=== PATIENT | female | born 1990 | race Caucasian/White ===

== ENCOUNTER 2024-02-04 10:33 | Emergency (ER) | payer BC, SELFPAY ==
--- NOTE | ~2024-02-04 | XR_ITS ---
EXAMINATION: XR forearm RT 2V DATE: 02/04/2024 11:47 INDICATION: Right forearm laceration. TECHNIQUE: 2 views of right forearm were obtained. COMPARISON: None. FINDINGS: Bone alignment is normal. No fracture. Joint spaces are normal. No elbow joint effusion. Th ere is a laceration of the forearm. IMPRESSION: 1. No fracture or radiopaque foreign body. Reviewed, dictated and finalized at location A.
[2024-02-04 10:57] VITALS: BP 118/80; PULSE 76; RESP 18; TEMP 36.8; O2SAT 100
--- NOTE | 2024-02-04 11:13 | ED.ANIMALBIT ---
HPI - Animal Bite General Chief Complaint: Animal Bite Stated Complaint: dog bite Time Seen by Provider: 02/04/24 10:52 Source: patient Mode of arrival: ambulatory Limitations: no limitations History of Present Illness HPI narrative: Patient is a 34-year-old female who presents the ED with report of a dog bite to right forearm. Patient reports she was breaking up a fight between her dog and her foster dog when she was bit in the right forearm. She sustained several puncture wounds and lacerations. The dogs are up-to-date on their vaccines. Patient's tetanus status is unknown. She denies any numbness or tingling. Denies any other injuries or concerns. Related Data Allergies Allergy/AdvReac Type Severity Reaction Status Date / Time amoxicillin Allergy Rash Verified 02/04/24 11:06 Review of Systems Review of Systems: CONSTITUTIONAL: Denies fever, chills, or sweats. MUSCULOSKELETAL: See HPI. NEUROLOGIC: Denies headache, dizziness, numbness, or weakness. All systems reviewed & are unremarkable except as noted in HPI and below Exam Narrative: GENERAL: Well appearing, well-nourished, non-toxic, in no acute distress. HEAD: Normocephalic, atraumatic. RESPIRATORY: Airway patent, respirations nonlabored. CARDIOVASCULAR: Regular rate and rhythm without murmurs, rubs, or gallops. Radial pulses equal and easily palpable. MUSCULOSKELETAL: Moves all extremities. No gross deformities. SKIN: Warm, dry, normal color. Several small puncture wounds to R dorsal forearm with larger 2.5cm laceration horizontal across forearm. Subcutaneous fatty tissue exposed, no significant active bleeding focal tenderness surrounding wounds. Smaller 1 cm laceration / puncture to ventral forearm with minimal active bleeding. Sensation intact throughout right upper extremity. Capillary refill intact. Able to move wrist and fingers appropriately. NEURO: A&O X3. Speech clear. PSYCHIATRIC: Appropriate mood and affect. Normal interaction. Course Vital Signs Vital signs: Vital Signs Temperature 98.3 F 02/04/24 10:57 Pulse Rate 76 02/04/24 10:57 Respiratory Rate 18 02/04/24 10:57 Blood Pressure 118/80 02/04/24 10:57 Pulse Oximetry 100 02/04/24 10:57 Oxygen Delivery Room Air 02/04/24 10:57 Temperature 98.4 F 02/04/24 12:48 Pulse Rate 81 02/04/24 12:48 Respiratory Rate 17 02/04/24 12:48 Blood Pressure 118/76 02/04/24 12:48 Pulse Oximetry 100 02/04/24 12:48 Oxygen Delivery Room Air 02/04/24 10:57 Procedures Laceration Laceration 1: Date: 02/04/24 Time: 12:06 Site: upper extremity Side (If applicable): right (dorsal forearm) Size (cm): 2.5 Description: linear Depth: simple, single layer Local Anesthetic: lidocaine 1% Amount of anesthesia used (mL): 6 Pre-repair: wound explored, irrigated and irrigated extensively ====== Skin Level ====== Skin layer closed with: nylon Size (cm): 4-0 Number of sutures: 3 Technique: simple, interrupted ====== Subcutaneous Layer ====== ====== Muscle Layer ====== ====== Tendon Layer ====== Laceration 2: Date: 02/04/24 Time: 12:06 Site: upper extremity Side (If applicable): right (ventral forearm) Size (cm): 1 Description: linear Depth: simple, single layer Local Anesthetic: lidocaine 1% Amount of anesthesia used (mL): 3 Pre-repair: wound explored, irrigated and irrigated extensively ====== Skin Level ====== Skin layer closed with: nylon Size (cm): 4-0 ====== Subcutaneous Layer ====== ====== Muscle Layer ====== ====== Tendon Layer ====== MDM - Animal Bite MDM Narrative Medical decision making narrative: Dog bite to right forearm. Dog up-to-date on vaccines. Patient's tetanus status updated in the ED. Patient with amoxicillin allergy. St
[2024-02-04] MEDS: HYDROcodone/acetaminophen (*CRX) 5-325 MG TABLET 1 TAB PO (11:24)
[2024-02-04] MEDS: TETANUS,DIPHTHERIA,AC PERTUSSIS ADULT (0.5 ML) BOOSTRIX IM (11:25)
[2024-02-04] MEDS: SULFAMETHOXAZOLE/TRIMETHOPRIM 800/160 MG DS TABLET 1 TAB PO (12:30)
[2024-02-04] MEDS: CLINDAMYCIN HCL 150 MG CAP 450 MG PO (12:30)
[2024-02-04 12:48] VITALS: BP 118/76; PULSE 81; RESP 17; TEMP 36.9; O2SAT 100
== END 2024-02-04 12:48 | disposition home or self-care (01) ==
PROVIDERS: Emergency Provider Physician Assistant
DX: S51.851A Open bite of right forearm, initial encounter (principal); Z23 Encounter for immunization; W54.0XXA Bitten by dog, initial encounter
CPT/HCPCS: 12001; 73090; 90471; 90715; 99283; A9270